=== PATIENT | female | born 1940 | race Caucasian/White ===

== ENCOUNTER → 2016-10-30 | Outpatient (CLI) | payer OTHER ==
--- NOTE | ~2016-10-30 | EKG ---
[place] [address] [address] [place] [address] ELECTROCARDIOGRAM REPORT Name: CASPER BURNS Room #: REG [facility]#: [id number] Admission: 10/30/16 Attend Phys: Brandon Vila MD, FAAF Discharge: Date of : 40 Report #: [id number] THIS REPORT FOR: //name// [facility] Test Date: 2016-10-30 Test Time: 16:22:56 Pat Name: CASPER BURNS Department: Room: Gender: F Chief Of Hospital Medicine: MISHEL : 1940 Requested By: Brandon Vila Order Number: [id number] MD: Measurements Intervals [place] Rate: 75 P: 48 WV: 156 QRS: -51 QRSD: 93 T: 37 QT: 363 QTc: 406 Interpretive Statements Sinus rhythm Left anterior fascicular block Abnormal R-wave progression, early transition Borderline T abnormalities, anterior leads Baseline wander in lead(s) V3 No previous ECG available for comparison [email or web address] By: 1622 1622 Epiphany EpiphanyMD /EPI
== END ==
LOC: CV 15:56
DX: I49.3 Ventricular premature depolarization (principal)